=== PATIENT | female | born 1980 | race Two or more races ===

== ENCOUNTER → 2018-07-06 | Outpatient (CLI) | payer BC ==
[2018-07-06 16:54] LABS: Mean Corpuscular Hemoglobin 14.9 pg (28.0-32.0); Red Blood Cells 4.45 10^6/uL (4.0-5.20)
[2018-07-06 16:56] LABS: Mean Corpuscular Hgb Conc. 28.9 g/dL (32.0-36.0); Mean Corpuscular Volume 51.7 fL (80.0-100.0); Platelet Count (auto) 420 10^3/uL (140-450); White Blood Cell 4.5 10^3/uL (4.4-10.8)
[2018-07-06 18:07] LABS: Urine Bacteria FEW /hpf (None Seen); Urine Blood Negative /uL (Negative); Urine Mucus FEW (None Seen); Urine Specific Gravity 1.027 (1.001-1.035); Urine WBC 4 /hpf (0 - 5)
[2018-07-06 18:12] LABS: Calcium 8.9 mg/dL (8.5-10.1); Potassium 3.5 mmol/L (3.5-5.1)
[2018-07-06 18:16] LABS: BUN/Creatinine Ratio 22.9; Bilirubin, Total 0.7 mg/dL (0.2-1.0)
[2018-07-06 18:21] LABS: Free T4 (Free Thyroxine) 0.93 ng/dL (0.89-1.76)
[2018-07-06 21:30] LABS: Red Cell Distribution Width 21.3 % (11.8-14.3)
[2018-07-06 21:36] LABS: Hemoglobin 6.6 g/dL (12.2-16.2)
[2018-07-06 21:37] LABS: Band Neutrophils % (manual) 0; Basophils % (manual) 0 (0.0-2.0); Blast Cells 0; Eosinophils % (manual) 4 (0-7); Lymphocytes % (manual) 32 (10.0-50.0); Metamyelocytes % 0; Monocytes % (manual) 6 (0-12); Myelocytes % 0; Promyelocytes % 0; Reactive Lymphocytes 0
== END | disposition home or self-care (01) ==
LOC: LAB 16:19
PROVIDERS: ATTEND Internal Medicine
DX: D64.9 Anemia, unspecified (principal); R12 Heartburn
CPT/HCPCS: 36415; 80053; 80061; 81001; 82607; 84439; 84443; 85007; 85027; 85652; 86677

== ENCOUNTER 2018-07-09 16:18 | Emergency (ER) | payer BC ==
[~2018-07-09] VITALS: Ht 162.6 cm; Wt 71.2 kg
[2018-07-09 17:59] LABS: White Blood Cell 5.5 10^3/uL (4.4-10.8)
[2018-07-09 18:01] LABS: Hematocrit 22.4 % (36.0-46.0); Mean Corpuscular Hemoglobin 15.2 pg (28.0-32.0); Mean Corpuscular Hgb Conc. 28.9 g/dL (32.0-36.0); Mean Corpuscular Volume 52.6 fL (80.0-100.0); Platelet Count (auto) 405 10^3/uL (140-450); Red Blood Cells 4.27 10^6/uL (4.0-5.20)
[2018-07-09 18:32] LABS: Red Cell Distribution Width 21.6 % (11.8-14.3)
[2018-07-09 18:35] LABS: Hemoglobin 6.5 g/dL (12.2-16.2)
[2018-07-09 18:36] LABS: Band Neutrophils % (manual) 0; Basophils % (manual) 0 (0.0-2.0); Blast Cells 0; Metamyelocytes % 0; Myelocytes % 0; Promyelocytes % 0; Reactive Lymphocytes 0
[2018-07-09 19:42] LABS: Eosinophils % (manual) 6 (0-7); Lymphocytes % (manual) 51 (10.0-50.0); Monocytes % (manual) 6 (0-12)
[2018-07-09 22:30] VITALS: BP 109/57
[2018-07-09 22:45] VITALS: BP 111/61
[2018-07-09 23:00] VITALS: BP 108/62
[2018-07-10] VITALS: BP 103/55
[2018-07-10 01:09] VITALS: BP 108/60
== END 2018-07-10 02:05 | disposition home or self-care (01) ==
LOC: ER 16:18
DX: D64.9 Anemia, unspecified (principal); K80.20 Calculus of gallbladder without cholecystitis without obstruction; K21.9 Gastro-esophageal reflux disease without esophagitis
CPT/HCPCS: 36415; 36430; 74176; 84702; 85007; 85027; 86850; 86900; 86901; 86920; 99285; J7040; P9016

== ENCOUNTER → 2018-08-17 | Outpatient (CLI) | payer BC ==
[2018-08-17 15:26] LABS: Basophils # (auto) 0.1 uL
[2018-08-17 15:28] LABS: Basophils % (auto) 1.5 % (0.0-2.0); Eosinophils # (auto) 0.4 uL; Eosinophils % (auto) 6.1 % (0.0-7.0); Hemoglobin 8.3 g/dL (12.2-16.2); Mean Corpuscular Hemoglobin 16.9 pg (28.0-32.0); Mean Corpuscular Hgb Conc. 29.6 g/dL (32.0-36.0); Mean Corpuscular Volume 56.9 fL (80.0-100.0); Monocytes # (auto) 0.6 uL; Monocytes % (auto) 8.4 % (0.0-12.0); Neutrophils # (auto) 4.1 uL; Nucleated Red Blood Cells % 0.1 %; Platelet Count (auto) 338 10^3/uL (140-450); Red Blood Cells 4.92 10^6/uL (4.0-5.20); White Blood Cell 7.3 10^3/uL (4.4-10.8)
[2018-08-17 15:31] LABS: Red Cell Distribution Width 26.1 % (11.8-14.3)
== END | disposition home or self-care (01) ==
LOC: LAB 14:53
PROVIDERS: ATTEND Internal Medicine
DX: D64.9 Anemia, unspecified (principal)
CPT/HCPCS: 36415; 85025

== ENCOUNTER → 2018-08-22 | Outpatient (CLI) | payer BC ==
[2018-08-22 10:34] LABS: Basophils # (auto) 0.1 uL; Eosinophils # (auto) 0.3 uL; Hemoglobin 8.4 g/dL (12.2-16.2); Monocytes # (auto) 0.3 uL
[2018-08-22 10:38] LABS: Basophils % (auto) 1.7 % (0.0-2.0); Eosinophils % (auto) 5.8 % (0.0-7.0); Hematocrit 27.7 % (36.0-46.0); Lymphocytes # (auto) 1.7 uL; Lymphocytes % (auto) 34.6 % (10.0-50.0); Mean Corpuscular Hgb Conc. 30.3 g/dL (32.0-36.0); Mean Corpuscular Volume 56.2 fL (80.0-100.0); Monocytes % (auto) 6.4 % (0.0-12.0); Neutrophils # (auto) 2.6 uL; Neutrophils % (auto) 51.5 % (37.0-80.0); Nucleated Red Blood Cells % 0.1 %; Platelet Count (auto) 290 10^3/uL (140-450); Red Blood Cells 4.94 10^6/uL (4.0-5.20); White Blood Cell 4.9 10^3/uL (4.4-10.8)
[2018-08-22 10:51] LABS: Red Cell Distribution Width 25.9 % (11.8-14.3)
[2018-08-22 11:22] LABS: Follicle Stimulating Hormone 13.5 IU/L (SEE BELOW); Leuteinizing Hormone 22.4 IU/L
== END | disposition home or self-care (01) ==
LOC: LAB 10:18
PROVIDERS: ATTEND Obstetrics & Gynecology
DX: N93.9 Abnormal uterine and vaginal bleeding, unspecified (principal)
CPT/HCPCS: 36415; 83001; 83002; 84403; 84443; 85025

== ENCOUNTER 2018-09-04 12:12 | Day surgery (SDC) | payer BC ==
[2018-08-30 14:53] LABS: Basophils # (auto) 0.1 uL; Basophils % (auto) 1.4 % (0.0-2.0); Eosinophils # (auto) 0.3 uL; Eosinophils % (auto) 4.8 % (0.0-7.0); Hemoglobin 8.6 g/dL (12.2-16.2); Lymphocytes # (auto) 1.7 uL; Monocytes # (auto) 0.4 uL
[2018-08-30 14:55] LABS: Hematocrit 28.4 % (36.0-46.0); Lymphocytes % (auto) 30.9 % (10.0-50.0); Mean Corpuscular Hemoglobin 16.9 pg (28.0-32.0); Mean Corpuscular Hgb Conc. 30.3 g/dL (32.0-36.0); Monocytes % (auto) 6.3 % (0.0-12.0); Neutrophils # (auto) 3.2 uL; Neutrophils % (auto) 56.6 % (37.0-80.0); Platelet Count (auto) 313 10^3/uL (140-450); Red Blood Cells 5.07 10^6/uL (4.0-5.20); White Blood Cell 5.6 10^3/uL (4.4-10.8)
[2018-08-30 14:59] LABS: Red Cell Distribution Width 25.1 % (11.8-14.3)
[2018-08-30 15:06] LABS: INR 0.93 (0.9-1.15); Partial Thromboplastin Time 25.5 sec (23.64-32.05)
[~2018-09-04] VITALS: Ht 165.1 cm; Wt 69.9 kg
[~2018-09-04 12:12] MED LIST: PANT40TA2 PO
[2018-09-04] MEDS ORDERED: SODIUM CHLORIDE LOCK 10 ML ONE (12:34)
[2018-09-04] MEDS ORDERED: NALOXONE HCL 0.4 MG/ML VIAL ONE (12:34)
[2018-09-04] MEDS ORDERED: LIDOCAINE VISCOUS 2% 15ML UD ONE (12:34)
[2018-09-04] MEDS ORDERED: FLUMAZENIL 0.1 MG/ML INJ 10ML MDV IV ONE (12:34)
[2018-09-04] MEDS ORDERED: diphenhdrAMINE HCL 50 MG/1 ML VL ONE (12:35)
[2018-09-04] MEDS: fentaNYL CITRATE 100 MCG/2 ML VL ONE ×3 (12:57→13:12)
[2018-09-04] MEDS: MIDAZOLAM HCL 5 MG/ML-1ML VIAL ONE ×3 (12:57→13:12)
[2018-09-04 13:59] VITALS: BP 119/74
== END 2018-09-04 14:15 | disposition home or self-care (01) ==
LOC: GI 12:12
PROVIDERS: ATTEND Internal Medicine Gastroenterology
DX: K57.30 Diverticulosis of large intestine without perforation or abscess without bleeding (principal); D50.9 Iron deficiency anemia, unspecified; K29.50 Unspecified chronic gastritis without bleeding; K21.0 Gastro-esophageal reflux disease with esophagitis; E66.9 Obesity, unspecified; Z68.25 Body mass index [BMI] 25.0-25.9, adult; Z98.84 Bariatric surgery status; Z98.51 Tubal ligation status
CPT/HCPCS: 36415; 43239; 43450; 45378; 84702; 85025; 85610; 85730; 88305; 88342; J1200; J2250; J3010; J7030; 99152; 99153

== ENCOUNTER → 2019-03-01 | Outpatient (CLI) | payer BC ==
[2019-03-01 10:40] LABS: Basophils # (auto) 0.1 uL; Eosinophils # (auto) 0.5 uL; Lymphocytes # (auto) 1.8 uL; Mean Corpuscular Hemoglobin 17.3 pg (28.0-32.0); Monocytes # (auto) 0.3 uL; Red Blood Cells 4.82 10^6/uL (4.0-5.20); White Blood Cell 4.8 10^3/uL (4.4-10.8)
[2019-03-01 10:42] LABS: Basophils % (auto) 1.6 % (0.0-2.0); Eosinophils % (auto) 9.5 % (0.0-7.0); Hematocrit 27.7 % (36.0-46.0); Hemoglobin 8.4 g/dL (12.2-16.2); Lymphocytes % (auto) 37.8 % (10.0-50.0); Mean Corpuscular Hgb Conc. 30.2 g/dL (32.0-36.0); Mean Corpuscular Volume 57.5 fL (80.0-100.0); Monocytes % (auto) 6.3 % (0.0-12.0); Neutrophils # (auto) 2.2 uL; Neutrophils % (auto) 44.8 % (37.0-80.0); Platelet Count (auto) 472 10^3/uL (140-450)
[2019-03-01 11:00] LABS: Albumin 3.6 g/dL (3.4-5.0); Potassium 3.6 mmol/L (3.5-5.1)
[2019-03-01 11:07] LABS: BUN/Creatinine Ratio 15.8; Bilirubin, Total 0.6 mg/dL (0.2-1.0); Calcium 8.8 mg/dL (8.5-10.1); Total Protein 8.5 g/dL (6.4-8.2)
[2019-03-01 11:11] LABS: Red Cell Distribution Width 23.3 % (11.8-14.3)
== END | disposition home or self-care (01) ==
LOC: LAB 10:27
PROVIDERS: ATTEND Internal Medicine
DX: D64.9 Anemia, unspecified (principal); N83.202 Unspecified ovarian cyst, left side
CPT/HCPCS: 36415; 80053; 83540; 85025; 86304

== ENCOUNTER → 2019-10-16 | Outpatient (CLI) | payer BC ==
[2019-10-16 10:32] LABS: Basophils # (auto) 0.1 10 ^3/uL (0-0.2); Basophils % (auto) 2.3 % (0.0-2.0); Eosinophils # (auto) 0.3 10 ^3/uL (0-0.8); Eosinophils % (auto) 6.7 % (0.0-7.0); Hematocrit 42.1 % (36.0-46.0); Hemoglobin 13.6 g/dL (12.2-16.2); Lymphocytes # (auto) 1.2 10 ^3/uL (0.4-5.4); Lymphocytes % (auto) 27.3 % (10.0-50.0); Mean Corpuscular Hemoglobin 27.2 pg (28.0-32.0); Mean Corpuscular Hgb Conc. 32.3 g/dL (32.0-36.0); Mean Corpuscular Volume 84.2 fL (80.0-100.0); Monocytes # (auto) 0.3 10 ^3/uL (0-1.3); Monocytes % (auto) 6.1 % (0.0-12.0); Neutrophils # (auto) 2.5 10 ^3/uL (1.6-8.6); Neutrophils % (auto) 57.6 % (37.0-80.0); Nucleated Red Blood Cells % 0.1 %; Platelet Count (auto) 260 10^3/uL (140-450); Red Cell Distribution Width 17.7 % (11.8-14.3); White Blood Cell 4.3 10^3/uL (4.4-10.8)
[2019-10-16 10:35] LABS: Urine Bacteria NONE SEEN /hpf (None Seen); Urine Blood Negative /uL (Negative); Urine Mucus FEW (None Seen); Urine Specific Gravity 1.026 (1.001-1.035); Urine WBC 1 /hpf (0 - 5)
[2019-10-16 11:20] LABS: Potassium 4.1 mmol/L (3.5-5.1)
[2019-10-16 11:31] LABS: Albumin 3.9 g/dL (3.4-5.0); BUN/Creatinine Ratio 19.7; Calcium 8.8 mg/dL (8.5-10.1); Total Protein 8.4 g/dL (6.4-8.2)
== END | disposition home or self-care (01) ==
LOC: LAB 09:59
PROVIDERS: ATTEND Internal Medicine
DX: D50.9 Iron deficiency anemia, unspecified (principal); R53.83 Other fatigue; Z83.3 Family history of diabetes mellitus
CPT/HCPCS: 36415; 80053; 80061; 81001; 84439; 84443; 85025; 85652

== ENCOUNTER → 2020-03-24 | Outpatient (CLI) | payer BC | END | disposition home or self-care (01) | LOC: LAB 13:55 | PROVIDERS: ATTEND Physician Assistant | DX: U07.1 COVID-19 (principal) | CPT/HCPCS: C9803; U0003 ==